=== PATIENT | female | born 1950 | race Caucasian/White ===

== ENCOUNTER 2022-09-05 12:41 | Outpatient (CLI) | payer MEDICARE, BC | END 2022-09-05 12:42 | disposition home or self-care (01) | LOC: TBSIIMAG 12:41 | PROVIDERS: ATTEND Neurological Surgery | DX: M51.24 Other intervertebral disc displacement, thoracic region (principal); M48.062 Spinal stenosis, lumbar region with neurogenic claudication; M47.815 Spondylosis without myelopathy or radiculopathy, thoracolumbar region; M47.816 Spondylosis without myelopathy or radiculopathy, lumbar region; M47.817 Spondylosis without myelopathy or radiculopathy, lumbosacral region; M47.813 Spondylosis without myelopathy or radiculopathy, cervicothoracic region; M47.814 Spondylosis without myelopathy or radiculopathy, thoracic region; M48.04 Spinal stenosis, thoracic region; Z98.890 Other specified postprocedural states | CPT/HCPCS: 72146; 72148 ==